=== PATIENT | female | born 1970 | race Caucasian/White ===

== ENCOUNTER 2025-09-05 22:46 | Emergency (ER) | payer OTHER ==
[~2025-09-05] VITALS: Ht 167.6 cm; Wt 131.7 kg
--- NOTE | 2025-09-05 23:15 | Physician Documentation ---
History of Present Illness ~ Chief Complaint: Foot pain Stated Complaint: FOOT PAIN Time Seen by : 23:43 OK to notify your PCP?: Yes Source: patient Mode of Arrival: POV Exam Limitations: no limitations HPI Reports having left calf pain as well as pain and swelling in her left ankle. She reports that she flew here from [place] on Sunday in the symptoms started yesterday. She denies any hormone therapy use, smoking, history of blood clots, blood thinner use. She denies any cardiac history. She also reports starting to get some pain in her right heel but she is not sure if this is related. Does report that she has had gout in the past and her father used to get gout in his ankles and not his toe. Reports having increased red meat intake. Medication Reconciliation Allergies: Coded Allergies: hydrocodone (Verified Allergy, Unknown, 09/05/25) morphine (Verified Allergy, Unknown, 09/05/25) oxycodone (Verified Allergy, Unknown, 09/05/25) sumatriptan (Verified Allergy, Unknown, 09/05/25) tramadol (Verified Allergy, Unknown, 09/05/25) Scheduled Colchicine/Probenecid (Probenecid-Colchicine Tabs), 1 TAB PO Q12H Physical Exam Vital Signs: Temperature: 97.6, Source: Temporal, Heart Rate: 70, Respiratory Rate: 16, BP: 130/86, Pulse Oximetry: 97, Weight: 131.700 Progress Results/Orders Results/Orders Orders - TNHARSH PARSON MD Dexamethasone Inj (Decadron 10mg/Ml Inj) (09/06/25 01:04) Completed Orders - HARSH KWONG MD Ketorolac Trometh 15mg/Ml Vial (Toradol (09/05/25 23:55) Medications Received in ER Medications (Trade) Dose Ordered Sig/Katja Route PRN Reason Start Time Stop Time Status Last Admin Dose Admin (Toradol injection) 15 mg ONCE ONCE IM 09/05/25 23:55 09/05/25 23:56 DC 09/06/25 00:02 15 MG Vital Signs 09/05/25 09/06/25 09/06/25 09/06/25 22:56 00:02 00:04 00:04 Temp 97.6 97.6 Pulse 70 54 Resp 16 16 16 B/P (MAP) 130/86 159/70 (99) Pulse Ox 97 100 O2 Flow Rate 0 09/06/25 00:51 Temp 97.6 Pulse 69 Resp 16 B/P (MAP) 134/86 (102) Pulse Ox 98 O2 Flow Rate 0 Laboratory Tests Test 09/05/25 23:28 White Blood Count 5.9 Red Blood Count 4.78 Hemoglobin 13.6 Hematocrit 40.0 Mean Corpuscular Volume 83.8 Mean Corpuscular Hemoglobin 28.5 Mean Corpuscular Hemoglobin Concent 34.0 Red Cell Distribution Width 13.6 Platelet Count 249 Mean Platelet Volume 8.0 Neutrophils (%) (Auto) 56.3 Lymphocytes (%) (Auto) 32.8 Monocytes (%) (Auto) 4.3 Eosinophils (%) (Auto) 5.7 Basophils (%) (Auto) 0.9 Neutrophils # (Auto) 3.3 Lymphocytes # (Auto) 1.9 Monocytes # (Auto) 0.3 Eosinophils # (Auto) 0.3 Basophils # (Auto) 0.1 CBC Comment Sodium Level 140 Potassium Level 4.9 Chloride Level 105 Carbon Dioxide Level 29.7 Anion Gap 5 L Blood Urea Nitrogen 28 H Creatinine 1.33 H Estimated GFR/1.73 m2 41 BUN/Creatinine Ratio 21.1 H Glucose Level 100 Uric Acid 7.5 H Calcium Level 8.9 Albumin 4.0 Chemistry Comments Departure Disposition: HOME / SELF CARE / HOMELESS Impression: Primary Impression: Gout Qualified Codes: M10.9 - Gout, unspecified Discharge Instructions: Gout, [id number] Additional Instructions: Use ibuprofen or Tylenol for pain use the medication for the gout twice a day, return if he develops significant worsening of your symptoms. Follow up with your healthcare providers soon as possible Referrals: NO PRIMARY CARE PROVIDER (PCP) Prescriptions Colchicine/Probenecid (Probenecid-Colchicine Tabs) 500 Mg-0.5 Mg Tablet 1 TAB PO Q12H for 7 Days, #14 TAB 0 Refills Prov: HARSH KWONG MD 09/06/25 Additional Comment Medical Screen Exam This patient recieved a medical screening examination. After reviewing the individual's medical complaints with presenting symptoms and performing an appropriate physical examination, it was determined that no immediate life- threatening emergency medical condition is present. This individual is also not a women having contractions. BETH BRONSON [employer] SUPER[employer] Sep 05, 2025 23:15 OHLHARSH SULLIVAN MD Sep 06, 2025 01:06
[2025-09-05 23:48] LABS: MEAN PLATELET VOLUME 8.0 FL (7.4-10.4); RED CELL DISTRIBUTION WIDTH 13.6 % (11.5-14.5)
[2025-09-06] MEDS: ketorolac trometh 15mg/ml vial 15 MG/ML ML IM ONE (00:02)
[2025-09-06 00:12] LABS: CREATININE 1.33 MG/DL (0.40-0.90); TOTAL CARBON DIOXIDE 29.7 MMOL/L (24-32); eCRCL 45 ML/MIN; eGFR 41 ML/MIN
--- NOTE | 2025-09-06 01:02 | VASCULAR REPORT ---
Bilateral lower extremity venous duplex Clinical History: Pain and swelling. Comparison: None Technique: Duplex Doppler evaluation of the deep venous systems of both lower extremities from the common femoral veins to the popliteal veins including color Doppler and spectral/pulsed waveform analysis was performed. Findings: LEFT SIDE: The common femoral vein demonstrates appropriate compressibility and waveform variability. There is compressibility/patency of the great saphenous vein at the proximal thigh. The femoral vein demonstrates appropriate compressibility and waveform variability. The deep femoral vein demonstrates appropriate compressibility and waveform variability. The popliteal vein demonstrates appropriate compressibility and waveform variability. There is normal compressibility at the tibioperoneal trunk. Impression: No left femoropopliteal venous thrombosis.
[2025-09-06] MEDS ORDERED: PROB1TAB2 PO (01:03)
[2025-09-06 01:07] VITALS: BP 126/73; PULSE 59; RESP 16; TEMP 97.6; O2SAT 99
[2025-09-06] MEDS: dexamethasone sod phosphate 10mg/ml inj IM STA (01:11)
== END 2025-09-06 01:16 | disposition home or self-care (01) ==
LOC: ER 22:47
DX: M10.9 Gout, unspecified (principal); Z88.5 Allergy status to narcotic agent; Z88.8 Allergy status to other drugs, medicaments and biological substances; Z79.899 Other long term (current) drug therapy
CPT/HCPCS: 36415; 80048; 84550; 85025; 93971; 96372; 99285; J1100; J1885